=== PATIENT | female | born 1945 | race Caucasian/White ===

== ENCOUNTER → 2018-05-18 | Outpatient (CLI) | payer MEDICARE, OTHER ==
--- NOTE | 2018-05-18 13:11 | RADIOLOGY IMAGING REPORT ---
FACILITY: [facility] PATIENT NAME: Alma Mejia : 1945 MR: [id number] V: [id number] EXAM DATE: ORDERING PHYSICIAN: ALFREDO JEWELL TECHNOLOGIST: Location: [facility] Patient: Alma Mejia : 1945 Visit/Account:[id number] Date of Sevice: 05/18/2018 Exam type: KNEE 3 VIEW LEFT History: Left knee pain x1 day, no known injury history of knee replacement Comparison: None. Findings: There is a left knee arthroplasty that appears in good anatomic alignment. There is no evidence of a cute fracture or dislocation. The distal portion of the tibial prosthesis is not included on the lat eral view IMPRESSION: 1. Left knee arthroplasty appears in good anatomic alignment with no evidence of acute fracture or d islocation Report Dictated By: Suellen Osorio MD at 05/18/2018 1:05 PM Report E-Signed By: Suellen Osorio MD at 05/18/2018 1:08 PM KAMN:[id number]
== END ==
LOC: RAD 11:30
PROVIDERS: ATTEND Physician Assistant
DX: M25.562 Pain in left knee (principal); Z96.652 Presence of left artificial knee joint